=== PATIENT | male | born 1975 | race Caucasian/White ===

== ENCOUNTER 2018-02-24 14:03 | Outpatient (CLI) | payer OTHER | END 2018-02-24 14:12 | disposition home or self-care (01) | LOC: RAD 14:03 | DX: M79.641 Pain in right hand (principal) ==

== ENCOUNTER 2018-03-04 08:30 | Day surgery (SDC) | payer OTHER | END 2018-03-04 21:10 | disposition home or self-care (01) | LOC: CIR.AMB 08:30 | DX: S62.501A Fracture of unspecified phalanx of right thumb, initial encounter for closed fracture (principal) ==

== ENCOUNTER 2018-11-12 09:36 | Outpatient (CLI) | payer OTHER | END 2018-11-12 09:50 | disposition home or self-care (01) | LOC: RAD 501 09:36 | DX: M25.541 Pain in joints of right hand (principal) ==